=== PATIENT | female | born 1990 | race Caucasian/White ===

== ENCOUNTER 2020-11-07 21:55 | Emergency (ER) | payer OTHER ==
[~2020-11-07 21:55] MED LIST: PRENATAL VITAM1 EAC8 PO; ZANTAC150 MG PO
[2020-11-07 22:57] LABS: HEMOGLOBIN 13.8 gm/dl (12.3-15.3); RED BLOOD COUNT 4.93 M/UL (4.00-5.10); WHITE BLOOD COUNT 7.6 K/UL (4.5-11.0)
[2020-11-07 23:14] LABS: BUN/CREATININE RATIO 32 (0-10)
== END 2020-11-08 00:15 | disposition home or self-care (01) ==
LOC: ER1 21:55
PROVIDERS: Physician Assistant
DX: O72.1 Other immediate postpartum hemorrhage (principal); O99.335 Smoking (tobacco) complicating the puerperium; F17.290 Nicotine dependence, other tobacco product, uncomplicated
CPT/HCPCS: 80048; 81001; 85025; 99284